=== PATIENT | female | born 1995 | race Caucasian/White ===

== ENCOUNTER 2016-09-14 17:00 | Emergency (ER) | payer SELFPAY ==
[2016-09-14 17:45] LABS: Bilirubin Negative (Negative); Blood, Urine Negative (Negative); Glucose, Urine (Dipstick) Negative (Negative); Ketone, Urine Trace mg/dL (Negative); Nitrite Negative (Negative); Protein, Urine (Dipstick) Negative (Neg-Trace)
[2016-09-14 17:54] LABS: Bacteria/HPF 1+ HPF (None Seen); RBC/HPF None Seen HPF (0-3)
[2016-09-14] MEDS ORDERED: Cephalexin 500 MG CAP ONE (18:16)
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
== END 2016-09-14 18:25 | disposition home or self-care (01) ==
LOC: NAV ERS 17:00
DX: O23.592 Infection of other part of genital tract in pregnancy, second trimester (principal); N76.0 Acute vaginitis; O23.42 Unspecified infection of urinary tract in pregnancy, second trimester; Z3A.14 14 weeks gestation of pregnancy
CPT/HCPCS: 81001; 87086; 87480; 87491; 87510; 87591; 87660; 99283

== ENCOUNTER 2016-11-18 08:16 | Outpatient (CLI) | payer OTHER ==
--- NOTE | 2016-11-18 11:28 | ULT ---
EXAM: OB ULTRASOUND: HISTORY: Evaluate for size and dates. COMPARISON: None. TECHNIQUE: Sagittal and transverse imaging of the gravid uterus is performed. FINDINGS: Single intrauterine gestation, with cephalic presentation. Posterior placenta. Lower uterine segme nt is not demonstrated. Limited evaluation for the presence and absence of placenta previa. heart tones with a rate of 54 b.p.m. BIOMETRY: BPD 5.31 cm, 22 weeks 1 day Head circumference 19.78 cm, 22 weeks 2 days Abdominal circumference 17.28 cm, 22 weeks 2 days Femur length 3.97 cm, 22 weeks 6 days Estimated weight is 502.46 gm. Average age by sonography is 22 weeks 0 days. Amniotic fluid index is 10.7 cm. SURVEY: The following structures are adequately demonstrated: cerebellum, bladder, 3-vessel cord, sagittal s pine, nose and lips. Suboptimal evaluation of the kidneys, stomach, cord insertion, as well as the ventricles. IMPRESSION: 1. Single intrauterine gestation with heart tones. Average by sonography is 22 weeks 2 days. 2. Suboptimal survey. The lateral ventricles, stomach, kidneys, and cord insertion are subop timally evaluated. 3. Suboptimal evaluation of the lower uterine segment. The presence or absence of previa cannot be accessed. Repeat imaging is recommended. POS: [facility]
== END 2016-11-18 08:17 | disposition home or self-care (01) ==
LOC: NAV ULT 08:16
PROVIDERS: ATTEND Nurse Practitioner
DX: O09.91 Supervision of high risk pregnancy, unspecified, first trimester (principal)
CPT/HCPCS: 76805

== ENCOUNTER 2019-03-21 22:28 | Emergency (ER) | payer OTHER, SELFPAY ==
[2019-03-21 22:46] LABS: Bilirubin Negative (Negative); Blood, Urine Large (Negative); Clarity Clear (Clear); Glucose, Urine (Dipstick) Negative (Negative); Leukocyte Negative (Negative); Nitrite Negative (Negative); Protein, Urine (Dipstick) Negative (Neg-Trace); Urobilinogen 0.2 mg/dL (Less than 2)
[2019-03-21 22:47] LABS: Pregnancy Test - Urine (BHCG) Negative (Negative); Pregu Control Background? CLEAR/WHITE (CLR/WHITE); Pregu Control Bar Appear? YES (CONTROL BAR)
[2019-03-21 22:50] LABS: Bacteria/HPF None Seen HPF (None Seen); RBC/HPF 21-50 HPF (0-3); WBC/HPF None Seen HPF (0-3)
[2019-03-21] MEDS ORDERED: Dicyclomine 20 MG TAB ONE (22:53)
== END 2019-03-21 22:58 | disposition home or self-care (01) ==
LOC: NAV ERS 22:28
DX: R10.84 Generalized abdominal pain (principal); R11.0 Nausea; F41.9 Anxiety disorder, unspecified; F31.9 Bipolar disorder, unspecified; D64.9 Anemia, unspecified
CPT/HCPCS: 81003; 81015; 81025; 99284